=== PATIENT | male | born 1970 | race Caucasian/White ===

== ENCOUNTER 2016-10-04 19:30 | Emergency (ER) | payer OTHER ==
--- NOTE | 2016-10-04 21:29 | ED CLINICAL REPORT ---
Clinical Report - Physicians/Mid Levels [facility] [address] [place] [address] 10/04/2016 19:32 Patient: GEORGIA LACY Arrived- By private vehicle. Historian- patient. HISTORY OF PRESENT ILLNESS Chief Complaint: CHEST PAIN. It is described as sharp and it is described as located in the left chest area. No radiation. At its maximum, severity described as moderate. When seen in the E.D., severity described as moderate. Modifying factors. Not worsened by anything. Not relieved by anything. This started past few weeks and is still present (staying the same). It was abrupt in onset and has been constant but is not gone now. No nausea, vomiting, difficulty breathing or diaphoresis. No additional chest pain. Similar symptoms previously: None. Recent medical care: Not recently seen/assessed. REVIEW OF SYSTEMS All systems otherwise negative, except as recorded above. PAST HISTORY See nurses notes. Additional Surgeries: no known surgeries. Medications: Anxiety medication. Ibuprofen Oral, as needed. Allergies: NKA. SOCIAL HISTORY Smoker- current status unknown. Alcohol use. No drug use. No recent travel. Is a local resident. FAMILY HISTORY No history of heart disease. ADDITIONAL NOTES The nursing notes have been reviewed. PHYSICAL EXAM Vital Signs: 10/04/2016 19:41 BP: 113/92. HR: 88. RR: 16. O2 saturation: 94%. Temp: 98.5 F. Pain level now: 4/10. Hypertensive. Oxygen saturation normal. Appearance: Alert. Oriented X3. No acute distress. Eyes: Pupils equal, round and reactive to light. Eyes normal inspection. ENT: Ears normal. Nose normal. Pharynx normal. Neck: Normal inspection. Neck supple. CVS: Heart rate / rhythm abnormal. Heart sounds abnormal. Pulses abnormal. Respiratory: No respiratory distress. Breath sounds normal. Chest nontender. No rales, rhonchi or wheezes. Abdomen: Abnormal bowel sounds. Not soft. Tenderness present. Back: Abnormal external inspection. Skin: Skin cool and moist. Abnormal skin color. Rash present. Abnormal skin turgor. Extremities: Lower extremity edema present. Extremities do not exhibit normal ROM. LABS, X-RAYS, AND EKG EKG: No acute ischemia. Normal sinus rhythm. Rate: 87. Normal P waves. Normal OMA. Normal QRS complex. LVH. (borderline). Normal axis. Normal ST and T waves, QT and QTc. The study has been interpreted contemporaneously. The study has been independently viewed by me. The EKG appears to be a good tracing. Chest X-ray: No acute disease. Normal lung markings present. Normal heart size. No infiltrate. Views: PA and lateral. The X-rays were independently viewed by me and interpreted contemporaneously by me. A comparison with prior films reveals that the findings are unchanged. Laboratory Tests: UA-Culture if indicated: (NANDO: 10/04/2016 19:58) ( MsgRcvd 10/04/2016 21:06) Final results Test Result Flag Units (Reference) URINE COLOR YELLOW URINE APPEARANCE CLEAR URINE GLUCOSE NEGATIVE (NEGATIVE) URINE BILIRUBIN NEGATIVE (NEGATIVE) URINE KETONE NEGATIVE (NEGATIVE) URINE SPECIFIC GRAVITY 1.020 (1.010-1.030) URINE PH 7.0 (5.0-8.0) URINE PROTEIN NEGATIVE (NEGATIVE) URINE UROBILINOGEN 0.2 EU/dL (0.2-1.0) URINE NITRITE NEGATIVE (NEGATIVE) URINE BLOOD NEGATIVE (NEGATIVE) URINE LEUK ESTERASE NEGATIVE (NEGATIVE) URINE RBC NONE SEEN rbc/hpf (0-1) URINE WBC 0-1 wbc/hpf (0-1) URINE EPITHELIAL CELLS RARE EPI/hpf (0-5) URINE BACTERIA NONE SEEN (NONE SEEN) URINE COMMENT CULT NOT INDICATED 1+ AMORPHOUSURINE CULTURES ARE SET-UP BASED ON THE FOLLOWING CRITERIA:POSITIVE NITRITEPOSITIVE LEUKOCYTE ESTERASEGREATER THAN 10 WHITE BLOOD CELLSMODERATE (2+) OR GREATER BACTERIA UA-Culture if indicated: (NANDO: 10/04/2016 20:16) ( MsgRcvd 10/04/2016 20:30) Final results Test Result Flag Units (Reference) URINE COLOR YELLOW URINE APPEARANCE CLEAR URINE GLUCOSE NEGATIVE (NEGATIVE) URINE BILIRUBIN NEGATIVE (NEGATIVE) URINE KETONE NEGATIVE (NEGATIVE) URINE SPECIFIC GRAVITY 1.020 (1.010-1.030) URINE PH 7.0 (5.0-8.0) URINE PROTEIN NEGATIVE (NEGATIVE) URINE UROBILINOGEN 0.2 EU/dL (0.2-1.0) URINE NITRITE NEGATIVE (NEGATIVE) URINE BLOOD NEGATIVE (NEGATIVE) URINE LEUK ESTERASE NEGATIVE (NEGATIVE) URINE RBC NONE SEEN rbc/hpf (0-1) URINE WBC 0-1 wbc/hpf (0-1) URINE EPITHELIAL CELLS RARE EPI/hpf (0-5) URINE BACTERIA NONE SEEN (NONE SEEN) URINE COMMENT CULT NOT INDICATED 1+ AMORPHOUSURINE CULTURES ARE SET-UP BASED ON THE FOLLOWING CRITERIA:POSITIVE NITRITEPOSITIVE LEUKOCYTE ESTERASEGREATER THAN 10 WHITE BLOOD CELLSMODERATE (2+) OR GREATER BACTERIA CBC w Diff: (NANDO: 10/04/2016 20:09) ( MsgRcvd 10/04/2016 20:22) Final results Test Result Flag Units (Reference) WHITE BLOOD COUNT 9.6 K/uL (4.5-11.5) RED BLOOD COUNT 5.01 M/uL (4.50-5.90) HEMOGLOBIN 15.8 gm/dL (13.5-17.5) HEMATOCRIT 47.0 % (41.0-53.0) MEAN CELL VOLUME 94 fL (80-100) MEAN CORPUSCULAR HGB 32 pg (26-34) MEAN CORPUSCULAR HGB CONC 34 g/dL (31-37) RED CELL DISTRIBUTION WIDTH 13.0 % (11.6-14.8) PLATELET COUNT 229 K/uL (150-400) NEUTROPHIL % 64.8 % (50-75) LYMPH % 25.4 % (25-40) MONO % 6.3 % (3-14) EOSINOPHIL % 3.0 % (0-4) BASOPHIL % 0.5 % (0-2) PT with INR: (NANDO: 10/04/2016 20:09) ( MsgRcvd 10/04/2016 20:49) Final results Test Result Flag Units (Reference) INR 1.0 (0.8-1.2) Low Intensity Therapy: INR 1.5-2.0 PT range 18.5-23.1Mod.Intensity Therapy: INR 2.0-3.0 PT range 23.1-31.5High Intensity Therapy: INR 2.5-3.5 PT range 27.4-35.5High Intensity Therapy 2: INR 3.0-4.0 PT range 31.5-39.3 Urine Drug Screen: (NANDO: 10/04/2016 20:09) ( MsgRcvd 10/04/2016 21:02) Final results Test Result Flag Units (Reference) AMPHETAMINE/METHAMPHETAMINE NEGATIVE (NEGATIVE) BARBITURATE NEGATIVE (NEGATIVE) BENZODIAZEPINE NEGATIVE (NEGATIVE) CANNABINOID NEGATIVE (NEGATIVE) COCAINE NEGATIVE (NEGATIVE) ECSTASY NEGATIVE (NEGATIVE) METHADONE NEGATIVE (NEGATIVE) OPIATE NEGATIVE (NEGATIVE) The urine drug screen is a qualitative screening test fordrug overdose and abuse. All screen results should beconsidered as presumptive.Drugs screened for are as follows:BenzodiazepinesCocaineAmphetamines/MetamphetaminesTHC (Tetrahydrocannabinol)OpiatesBarbituratesEcstasyMethadonePositive results are unconfirmed. For confirmation, notifythe lab for the specimen to be sent to the reference lab.All confirmations must be performed by a differentmethodology.The ingestion of natural herbal and plant productscontaining Ephedra/Ephedra metabolites can produce in urineone or more substances capable of cross reacting withamphetamine/methamphetamine immunoassays. These testsprovide a preliminary result only. A more specificalternative chemical method must be used to obtain aconfirmed analytical result. Urine Drug Screen: (NANDO: 10/04/2016 20:16) ( MsgRcvd 10/04/2016 20:41) Final results Test Result Flag Units (Reference) AMPHETAMINE/METHAMPHETAMINE NEGATIVE (NEGATIVE) BARBITURATE NEGATIVE (NEGATIVE) BENZODIAZEPINE NEGATIVE (NEGATIVE) CANNABINOID NEGATIVE (NEGATIVE) COCAINE NEGATIVE (NEGATIVE) ECSTASY NEGATIVE (NEGATIVE) METHADONE NEGATIVE (NEGATIVE) OPIATE POSITIVE H (NEGATIVE) The urine drug screen is a qualitative screening test fordrug overdose and abuse. All screen results should beconsidered as presumptive.Drugs screened for are as follows:BenzodiazepinesCocaineAmphetamines/MetamphetaminesTHC (Tetrahydrocannabinol)OpiatesBarbituratesEcstasyMethadonePositive results are unconfirmed. For confirmation, notifythe lab for the specimen to be sent to the reference lab.All confirmations must be performed by a differentmethodology.The ingestion of natural herbal and plant productscontaining Ephedra/Ephedra metabolites can produce in urineone or more substances capable of cross reacting withamphetamine/methamphetamine immunoassays. These testsprovide a preliminary result only. A more specificalternative chemical method must be used to obtain aconfirmed analytical result. CMP: (NANDO: 10/04/2016 20:09) ( MsgRcvd 10/04/2016 20:41) Final results Test Result Flag Units (Reference) GLUCOSE 87 mg/dL (70-110) BUN 20 H mg/dL (7-18) CREATININE 0.9 mg/dL (0.6-1.3) Estimated GFR >60 mL/min Estimated GFR- >60 mL/min Note: Persistent reduction over 3 months in eGFR<60 mL/min/1.73 m2 defines CKD. Patients with eGFR values>=60 mL/min/1.73 m2 may also have CKD if evidence ofpersistent proteinuria. Additional information may be foundat www.[email or web address].org. SODIUM 143 mmol/L (136-145) POTASSIUM 4.6 mmol/L (3.5-5.1) CHLORIDE 106 mmol/L (98-107) CARBON DIOXIDE 29 mmol/L (21-32) CALCIUM 8.6 mg/dL (8.5-10.1) TOTAL PROTEIN 7.3 g/dL (6.4-8.2) ALBUMIN 3.8 g/dL (3.3-5.0) BILIRUBIN, TOTAL 0.3 mg/dL (0.0-1.0) ALKALINE PHOSPHATASE 60 U/L (46-116) AST (SGOT) 17 U/L (15-37) ALT (SGPT) 21 U/L (12-78) TROPONIN I <0.05 L ng/mL (0.00-1.5) TROPONIN REFERENCE RANGE:<0.1 NEGATIVE0.1-1.5 INDETERMINANT>1.5 POSITIVE . PROGRESS AND PROCEDURES Course of Care: the patient is a pleasant 46-year-old male with no pertinent past medical history presenting for evaluation of chest pain. Patient reports with past to 3 weeks he's been having increasing stress and pain to the left side of his chest . Appears to be nonexertional. Patient has a risk factor for coronary artery disease with smoking. No other known abnormalities. EKG does not show any acute abnormalities. Possible left ventricular hypertrophy. Patient seems to befocused on the amount of stress she has been having with working 2 jobs, being a single dad of 3 children, and supporting his living situation and the children. Patient presented is been prescribed a anxiety medication however does not feel that this is working. Patient reported that he had to take off from work today in order to be evaluated. Patient is currently PE RC negative. Patient has no other risk factors for pulmonary embolism. Do not feel further workup is needed for acute pulmonary embolism. Patient has been having pain for the past 2 or 3 weeks. His been constant. Troponin 1 has been ordered. Do not feel patient is delta troponin given the time course of his illness. Workup does not show acute abnormalities. Troponin is negative. d-dimer is normal making pulmonary embolism and thoracic aortic dissection extremely unlikely. Do not the patient is admitted to the hospital require further emergency department workup. Patient is a stable outpatient candidate. I discussed the patient workup, diagnosis, home care, follow-up, and return precautions. All questions answered. The patient expressed understanding of these instructions and was agreeable to them. Disposition: Discharged. Condition: good. CLINICAL IMPRESSION Chest pain characterized as "discomfort" .12 lead EKG performed. 10/04/2016 19:41 BP: 113/92. HR: 88. RR: 16. O2 saturation: 94%. Temp: 98.5 F. Pain level now: 11/22. Adjustment disorder with anxiety (acute). Blood pressure normal. Oxygen saturation normal. INSTRUCTIONS Warnings: GENERAL WARNINGS: Return or contact your physician immediately if your condition worsens or changes unexpectedly, if not improving as expected, or if other problems arise. SPECIFICALLY, return if you develop chest, neck, jaw, shoulder, arm, or back pain, difficulty breathing, a fluttering sensation in your chest, lightheadedness, fainting, excessive fatigue, or sudden sweating. Your Current Medications: CONTINUE TAKING THE FOLLOWING MEDICATIONS: Anxiety medication*. Ibuprofen Oral : prn. Follow-up: Return to the emergency department as needed. Follow up with your doctor. Reason for referral: recheck today's concerns. Summary of care provided to patient via paper. Screening today revealed the patient's blood pressure to be in the normal range. The patient should follow up with a primary care provider for blood pressure management. Understanding of the discharge instructions verbalized by patient. Follow-up with: Aaliyah Calhoun MD, Cardiology, , [facility], [address] [place] [address], [facility], [id number] Follow up in three days. Reason for referral: recheck today's concerns. Summary of care provided to patient via paper. (Electronically signed by Vaughn Clemente Dr. 10/12/2016 8:04)
--- NOTE | 2016-10-04 21:29 | ED NURSING NOTES ---
Clinical Report - Nurses [facility] [address] [place] [address] 10/04/2016 19:32 Patient: GEORGIA LACY TRIAGE Triage time 1941 PM. Acuity: LEVEL 3. Chief Complaint: CHEST PAIN and (anxiety). Alert. No acute distress. --19:46 Mark Arana R.N. 19:41 10/04/16. BP: 113/92 taken on the left arm, via an automated monitor, while lying. HR: 88. RR: 16. O2 saturation: 94%. Temp: 98.5 F (oral). Pain level now: 11/22. --19:46 Mark Arana R.N. Weight: 56.6 kg stated. Height/Length: 65 inches. BMI: 20.8. --19:41 Mark Arana R.N. Medications Ibuprofen Oral, as needed. --19:45 Mark Arana R.N. Anxiety medication. --19:45 Mark Arana R.N. Allergies NKA. --19:45 Mark Arana R.N. History Arrived by private vehicle. Historian: patient. Accompanied by family. This started today. ( Patient presents to the ED with symptoms of intermittent CP and anxiety that began while he was at work. 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 Patient states that he is a single father with 3 children and one with cerebral palsy. Patient states that he is struggling to find a place to live. Patient states that he is feeling extremely stressed. Patient states that his only coping mechanism is smoking cigarettes.). He has had difficulty breathing. 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 PAST MEDICAL HX: Immunizations: up-to-date. SOCIAL HX: Heavy tobacco smoker- more than 2 packs per day. Alcohol use. Last drink was 4 weeks ago. Patient is a recovering alcoholic. History of drug use. (no). FALL RISK ASSESSMENT: Fall risk assessment completed. No fall risk identified. NUTRITIONAL RISK ASSESSMENT: The nutritional risk assessment revealed no deficiencies. FUNCTIONAL ASSESSMENT: Functional assessment: no impairments noted. LEARNING NEEDS ASSESSMENT: The learning needs assessment revealed no barriers. SKIN INTEGRITY ASSESSMENT: Skin integrity risk assessment completed. No skin integrity risk identified. --19:46 Mark Arana R.N. PROBLEMS: Anxiety Reaction. Gastritis. Back Pain. Urinary Calculi. --19:45 Mark Arana R.N. ADDITIONAL SURGERIES: no known surgeries. Interventions ID band on patient. To treatment room. --19:46 Mark Arana R.N. PHYSICAL ASSESSMENT Ambulatory to room. GENERAL / NEURO / PSYCH: Alert. Oriented X 4. Appears in no acute distress. Appears anxious. HEENT: Mucous membranes are pink. RESPIRATORY: Respirations not labored. Chest nontender. CVS: Normal sinus rhythm noted. Heart sounds within normal limits. Pulses within normal limits. Capillary refill less than 2 seconds. GI / : Abdomen soft and nontender. EXTREMITIES: No lower extremity edema. SKIN: Skin is warm and dry. Normal skin turgor. Skin is non-tender. --19:46 Mark Arana R.N. NURSING PROGRESS NOTES Reassurance given. Call light placed in reach. Side rails up x 2. Bed placed in lowest position. Brakes of bed on. --19:47 Mark Arana R.N. EKG time: (1944 PM). EKG was ordered, performed by a tech and shown to the ED physician. --19:47 Mark Arana R.N. 20:10 10/04/2016 Aspirin PO Tablets 324 mg given. Allergies verified and confirmed 5 rights. --20:10 Mark Arana R.N. EKG time: (1944). EKG was performed by a tech and shown to the ED physician. --20:16 Elizabeth Titus ER Tech1 20:22 10/04/2016 Site #1 started prior to arrival by EMS via IV in the right antecubital space with an 18g angiocath; one attempt. Blood drawn: rainbow set. Labeled in the presence of the patient and sent to the lab. Saline lock flushed with 10 mL saline. --20:22 Mark Arana R.N. Call light placed in reach. Side rails up x 2. Bed placed in lowest position. Brakes of bed on. --21:33 Mark Arana R.N. 21:32 10/04/16. BP: 140/92. HR: 90. RR: 16. O2 saturation: 100%. --21:33 Mark Arana R.N. The patient is calm and resting quietly. Overall patient status is improved- he states feels better. RESPIRATORY: No respiratory distress. Breath sounds normal. CVS: Normal sinus rhythm noted. SKIN: Skin is warm and dry. Skin color within normal limits. --21:33 Mark Arana R.N. DISPOSITION / DISCHARGE 22:04 10/04/2016 Site #1 removed upon discharge. Catheter intact. Bandaid applied. --22: Mark Arana R.N. Condition at departure: improved. The goals identified in the patient's plan of care were met. No learning barriers present. Reviewed medication(s) side effects, precautions, dosing and course information. Prescription(s) given to the patient. Patient verbalized understanding. Written instructions provided in Tajik. The patient was discharged home and unaccompanied at time of discharge. He left the Emergency Department ambulatory and via private vehicle. Patient driving. FALL RISK ASSESSMENT: Fall risk assessment completed. No fall risk identified. --22:04 Mark Arana R.N. 22:03 10/04/16. BP: 133/88 taken on the right arm, via an automated monitor, while lying. HR: 88. RR: 16. O2 saturation: 99%. Temp: 98.2 F (oral). Pain level now: 0/10. --22:04 Mark Arana R.N. Departure time: 2204 PM. --22:04 Mark Arana R.N. Locked/Released at 10/04/2016 22:05 by Mark Arana R.N.
--- NOTE | 2016-10-04 21:29 | ED ORDER SUMMARY ---
..... Patient: GEORGIA LACY OrderSheet [facility] VisitID: [id number] [address] [place] [address] 46y, M Registration Date/Time: 10/04/2016 ORDER SHEET Weight: 56.6 kg (stated) Allergies: NKA GENERAL ORDERS: Chest 2V Urgent (19:58 10/04/2016 Ayan Sherwood) (Ack 20:00 LMuller) (20:11 MCampbell) Scale Technician (Continuous) (CP) (19:58 10/04/2016 Ayan Sherwood) (Ack 20:00 LMuller) (20:21 HOShaughnessy R.N.) CBC w Diff Urgent (19:58 10/04/2016 Ayan Sherwood) (Ack 20:00 LMuller) (20:21 HOShaughnessy R.N.) CMP Urgent (19:58 10/04/2016 Ayan Sherwood) (Ack 20:00 LMuller) (20:21 HOShaughnessy R.N.) PT with INR Urgent (19:58 10/04/2016 Ayan Sherwood) (Ack 20:00 LMuller) (20:21 HOShaughnessy R.N.) UA-Culture if indicated Urgent (19:58 10/04/2016 Ayan Sherwood) (Ack 20:00 LMuller) (20:21 HOShaughnessy R.N.) Troponin-I Urgent (19:58 10/04/2016 Ayan Sherwood) (Ack 20:00 LMuller) (20:21 HOShaughnessy R.N.) Urine Drug Screen Urgent (19:58 10/04/2016 Ayan Sherwood) (Ack 20:00 LMuller) (20:21 HOShaughnessy R.N.) Pulse oximeter (19:58 10/04/2016 Ayan Sherwood) (Ack 20:00 LMuller) (20:21 HOShaughnessy R.N.) EKG - ER Stat (20:06 10/04/2016 HOShaughnessy R.N. per protocol) (20:06 HOShaughnessy R.N.) US Abdomen Limited (No) Urgent (21:03 10/04/2016 Ayan Sherwood) (21:05 Ayan Sherwood) (Cancelled: error21:05 Ayan Sherwood) Lipase Urgent (21:03 10/04/2016 Ayan Sherwood) (Cancelled: error21:05 Ayan Sherwood) D-Dimer Urgent (21:30 10/04/2016 Ayan Sherwood) (Ack 21:34 LMuller) (21:41 LMuller) MEDICATION ORDERS: Aspirin PO 325 mg (Do not crush or chew, NOW) (19:58 10/04/2016 Ayan Sherwood) (20:10 Zeke Mota) IV FLUIDS: IV Saline Lock (19:58 10/04/2016 Ayan Sherwood) (20:22 Zeke Mota) ORDER SHEET NOTES: [Electronically signed by Mark Arana R.N. (22:05 10/04/2016)] [Electronically signed by Vaughn Clemente Dr. (08:04 10/12/2016)] [Electronically locked/signed by Mark Arana R.N. (22:05 10/04/2016)]
--- NOTE | 2016-10-04 21:29 | ED NURSING NOTES ---
Clinical Report - Nurses [facility] [address] [place] [address] 10/04/2016 19:32 Patient: GEORGIA LACY TRIAGE Triage time 1941 PM. Acuity: LEVEL 3. Chief Complaint: CHEST PAIN and (anxiety). Alert. No acute distress. --19:46 Mark Arana R.N. 19:41 10/04/16. BP: 113/92 taken on the left arm, via an automated monitor, while lying. HR: 88. RR: 16. O2 saturation: 94%. Temp: 98.5 F (oral). Pain level now: 11/22. --19:46 Mark Arana R.N. Weight: 56.6 kg stated. Height/Length: 65 inches. BMI: 20.8. --19:41 Mark Arana R.N. Medications Ibuprofen Oral, as needed. --19:45 Mark Arana R.N. Anxiety medication. --19:45 Mark Arana R.N. Allergies NKA. --19:45 Mark Arana R.N. History Arrived by private vehicle. Historian: patient. Accompanied by family. This started today. ( Patient presents to the ED with symptoms of intermittent CP and anxiety that began while he was at work. 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 Patient states that he is struggling to find a place to live. Patient states that he is feeling extremely stressed. Patient states that his only coping mechanism is smoking cigarettes.). He has had difficulty breathing. 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 PAST MEDICAL HX: Immunizations: up-to-date. SOCIAL HX: Heavy tobacco smoker- more than 2 packs per day. Alcohol use. Last drink was 4 weeks ago. Patient is a recovering alcoholic. History of drug use. (no). FALL RISK ASSESSMENT: Fall risk assessment completed. No fall risk identified. NUTRITIONAL RISK ASSESSMENT: The nutritional risk assessment revealed no deficiencies. FUNCTIONAL ASSESSMENT: Functional assessment: no impairments noted. LEARNING NEEDS ASSESSMENT: The learning needs assessment revealed no barriers. SKIN INTEGRITY ASSESSMENT: Skin integrity risk assessment completed. No skin integrity risk identified. --19:46 Mark Arana R.N. PROBLEMS: Anxiety Reaction. Gastritis. Back Pain. Urinary Calculi. --19:45 Mark Arana R.N. ADDITIONAL SURGERIES: no known surgeries. Interventions ID band on patient. To treatment room. --19:46 Mark Arana R.N. PHYSICAL ASSESSMENT Ambulatory to room. GENERAL / NEURO / PSYCH: Alert. Oriented X 4. Appears in no acute distress. Appears anxious. HEENT: Mucous membranes are pink. RESPIRATORY: Respirations not labored. Chest nontender. CVS: Normal sinus rhythm noted. Heart sounds within normal limits. Pulses within normal limits. Capillary refill less than 2 seconds. GI / : Abdomen soft and nontender. EXTREMITIES: No lower extremity edema. SKIN: Skin is warm and dry. Normal skin turgor. Skin is non-tender. --19:46 Mark Arana R.N. NURSING PROGRESS NOTES Reassurance given. Call light placed in reach. Side rails up x 2. Bed placed in lowest position. Brakes of bed on. --19:47 Mark Arana R.N. EKG time: (1944 PM). EKG was ordered, performed by a tech and shown to the ED physician. --19:47 Mark Arana R.N. 20:10 10/04/2016 Aspirin PO Tablets 324 mg given. Allergies verified and confirmed 5 rights. --20:10 Mark Arana R.N. EKG time: (1944). EKG was performed by a tech and shown to the ED physician. --20:16 Elizabeth Titus ER Tech1 20:22 10/04/2016 Site #1 started prior to arrival by EMS via IV in the right antecubital space with an 18g angiocath; one attempt. Blood drawn: rainbow set. Labeled in the presence of the patient and sent to the lab. Saline lock flushed with 10 mL saline. --20:22 Mark Arana R.N. Call light placed in reach. Side rails up x 2. Bed placed in lowest position. Brakes of bed on. --21:33 Mark Arana R.N. 21:32 10/04/16. BP: 140/92. HR: 90. RR: 16. O2 saturation: 100%. --21:33 Mark Arana R.N. The patient is calm and resting quietly. Overall patient status is improved- he states feels better. RESPIRATORY: No respiratory distress. Breath sounds normal. CVS: Normal sinus rhythm noted. SKIN: Skin is warm and dry. Skin color within normal limits. --21:33 Mark Arana R.N. DISPOSITION / DISCHARGE 22:04 10/04/2016 Site #1 removed upon discharge. Catheter intact. Bandaid applied. --22: Mark Arana R.N. Condition at departure: improved. The goals identified in the patient's plan of care were met. No learning barriers present. Reviewed medication(s) side effects, precautions, dosing and course information. Prescription(s) given to the patient. Patient verbalized understanding. Written instructions provided in Luxembourgish. The patient was discharged home and unaccompanied at time of discharge. He left the Emergency Department ambulatory and via private vehicle. Patient driving. FALL RISK ASSESSMENT: Fall risk assessment completed. No fall risk identified. --22:04 Mark Arana R.N. 22:03 10/04/16. BP: 133/88 taken on the right arm, via an automated monitor, while lying. HR: 88. RR: 16. O2 saturation: 99%. Temp: 98.2 F (oral). Pain level now: 0/10. --22:04 Mark Arana R.N. Departure time: 2204 PM. --22:04 Mark Arana R.N. Locked/Released at 10/04/2016 22:05 by Mark Arana R.N.
--- NOTE | 2016-10-04 21:29 | ED ORDER SUMMARY ---
..... Patient: GEORGIA LACY OrderSheet [facility] VisitID: [id number] [address] [place] [address] 46y, M Registration Date/Time: 10/04/2016 ORDER SHEET Weight: 56.6 kg (stated) Allergies: NKA GENERAL ORDERS: Chest 2V Urgent (19:58 10/04/2016 Ayan Sherwood) (Ack 20:00 LMuller) (20:11 MCampbell) Fuel Distribution System Operator (Continuous) (CP) (19:58 10/04/2016 Ayan Sherwood) (Ack 20:00 LMuller) (20:21 HOShaughnessy R.N.) CBC w Diff Urgent (19:58 10/04/2016 Ayan Sherwood) (Ack 20:00 LMuller) (20:21 HOShaughnessy R.N.) CMP Urgent (19:58 10/04/2016 Ayan Sherwood) (Ack 20:00 LMuller) (20:21 HOShaughnessy R.N.) PT with INR Urgent (19:58 10/04/2016 Ayan Sherwood) (Ack 20:00 LMuller) (20:21 HOShaughnessy R.N.) UA-Culture if indicated Urgent (19:58 10/04/2016 Ayan Sherwood) (Ack 20:00 LMuller) (20:21 HOShaughnessy R.N.) Troponin-I Urgent (19:58 10/04/2016 Ayan Sherwood) (Ack 20:00 LMuller) (20:21 HOShaughnessy R.N.) Urine Drug Screen Urgent (19:58 10/04/2016 Ayan Sherwood) (Ack 20:00 LMuller) (20:21 HOShaughnessy R.N.) Pulse oximeter (19:58 10/04/2016 Ayan Sherwood) (Ack 20:00 LMuller) (20:21 HOShaughnessy R.N.) EKG - ER Stat (20:06 10/04/2016 HOShaughnessy R.N. per protocol) (20:06 HOShaughnessy R.N.) US Abdomen Limited (No) Urgent (21:03 10/04/2016 Ayan Sherwood) (21:05 Ayan Sherwood) (Cancelled: error21:05 Ayan Sherwood) Lipase Urgent (21:03 10/04/2016 Ayan Sherwood) (Cancelled: error21:05 Ayan Sherwood) D-Dimer Urgent (21:30 10/04/2016 Ayan Sherwood) (Ack 21:34 LMuller) (21:41 LMuller) MEDICATION ORDERS: Aspirin PO 325 mg (Do not crush or chew, NOW) (19:58 10/04/2016 Ayan Sherwood) (20:10 Zeke Mota) IV FLUIDS: IV Saline Lock (19:58 10/04/2016 Ayan Sherwood) (20:22 Zeke Mota) ORDER SHEET NOTES: [Electronically signed by Mark Arana R.N. (22:05 10/04/2016)] [Electronically signed by Vaughn Clemente Dr. (08:04 10/12/2016)] [Electronically locked/signed by Mark Arana R.N. (22:05 10/04/2016)]
--- NOTE | 2016-10-04 22:38 | DIAGNOSTIC IMAGING REPORT ---
PROCEDURE: XR CHEST 2 VIEW INDICATION: CHEST PAIN TECHNIQUE: Two views. COMPARISON: Acute abdomen series 07/11/2014 FINDINGS: The cardiomediastinal contour and central vasculature are within normal limits. The lungs are clear without focal consolidation, pleural effusion, or pneumothorax. No acute fractures. Incidental note made of chronic minor compression fracture of L1. IMPRESSION: 1. Stable chest, no acute process.
--- NOTE | 2016-10-12 08:05 | ED MAR SUMMARY ---
..... Medication Administration Record [facility] [address] [place] [address] Patient: GEORGIA LACY Visit ID: [id number] 46y, M Weight: 56.6 kg Height/Length: 65 in BMI: 20.8 ALLERGIES: NKA Given 20:10 10/04/2016 Mark Arana R.N. Medication Administered: ASPIRIN [PO], Dose: 324 mg Tablets PO. Medication Ordered: Aspirin PO 325 mg (Do not crush or chew, NOW).
--- NOTE | 2016-10-12 08:05 | ED DISCHARGE INSTRUCTIONS ---
Patient: GEORGIA LACY General Instructions [facility] VisitID: [id number] [address] [place] [address] 46y, M Registration Date/Time: 10/04/2016 Chest pain characterized as "discomfort" .12 lead EKG performed. 10/04/2016 19:41 BP: 113/92. HR: 88. RR: 16. O2 saturation: 94%. Temp: 98.5 F. Pain level now: 11/22. Adjustment disorder with anxiety (acute). Blood pressure normal. Oxygen saturation normal. INSTRUCTIONS Warnings: GENERAL WARNINGS: Return or contact your physician immediately if your condition worsens or changes unexpectedly, if not improving as expected, or if other problems arise. SPECIFICALLY, return if you develop chest, neck, jaw, shoulder, arm, or back pain, difficulty breathing, a fluttering sensation in your chest, lightheadedness, fainting, excessive fatigue, or sudden sweating. Your Current Medications: CONTINUE TAKING THE FOLLOWING MEDICATIONS: Anxiety medication*. Ibuprofen Oral : prn. Follow-up: Return to the emergency department as needed. Follow up with your doctor. Reason for referral: recheck today's concerns. Summary of care provided to patient via paper. Screening today revealed the patient's blood pressure to be in the normal range. The patient should follow up with a primary care provider for blood pressure management. Understanding of the discharge instructions verbalized by patient. Follow-up with: Aaliyah Calhoun MD, Cardiology, , [facility] - [place] [address], [facility], [id number] Follow up in three days. Reason for referral: recheck today's concerns. Summary of care provided to patient via paper. ADDITIONAL INFORMATION Chest Pain, Uncertain Cause Chest pain can happen for a number of reasons. Sometimes the cause can not be determined. If yourcondition does not seem serious, and your pain does not appear to be coming from your heart, your doctor may recommend watching it closely. Sometimes the signs of a serious problem take more time to appear. Therefore, watch for the warning signs listed below. Home care After your visit, follow these recommendations: Rest today and avoid strenuous activity. Take any prescribed medicine as directed. Follow-up care Follow up with your doctor or this facility as instructed or if you do not start to feel better within 24 hours. Call 911 Get immediate medical attention if any of the following occur: A change in the type of pain: if it feels different, becomes more severe, lasts longer, or begins to spread into your shoulder, arm, neck, jaw or back Shortness of breath or increased pain with breathing Weakness, dizziness, or fainting Rapid heart beat Get prompt medical attention Call your doctor right away if any of the following occur: Cough with dark colored sputum (phlegm) or blood Fever of 100.4F(38C) or higher, or as directed by your health care provider Swelling, pain or redness in one leg Adjustment Disorder An adjustment disorder is a condition that results from having a hard time coping with the normal stresses of life. You may feel you have too much to do and cant get it all done. These feelings may be triggered by divorce, job loss, someone you know dying, or by a positive event like getting a new job or getting . These feelings may interfere with your relationships at home and at work. With this condition, it is common to feel sad, guilty, hopeless and restless. These feelings may continue for weeks or months. It can be helpful to identify what is causing the additional stress and takes steps to get extra support. If new stressful events do not occur, it is likely that you will start feeling better within six months. Home Care: If you have been given a prescription for medicine, take it as directed. It helps to talk about your feelings and thoughts with family or friends that understand and support you. Follow Up with your doctor or therapist as advised by our staff. Let them know if this condition lasts more than six months without sign of improvement. For more information, contact the National [place] on Mental Illness at 082-988-3252 or visit www.osvaldo.org. Get Prompt Medical Attention if any of the following occur: Worsening depression or anxiety Feeling out of control Thoughts of harming yourself or another Being unable to care for yourself You have been given the following additional information: Chest Pain, Uncertain Cause Adjustment Disorder (Electronically signed by Vaughn Clemente Dr. 10/12/2016 8:04)
--- NOTE | 2016-10-12 08:05 | ED MAR SUMMARY ---
..... Medication Administration Record [facility] [address] [place] [address] Patient: GEORGIA LACY Visit ID: [id number] 46y, M Weight: 56.6 kg Height/Length: 65 in BMI: 20.8 ALLERGIES: NKA Given 20:10 10/04/2016 Mark Arana R.N. Medication Administered: ASPIRIN [PO], Dose: 324 mg Tablets PO. Medication Ordered: Aspirin PO 325 mg (Do not crush or chew, NOW).
--- NOTE | 2016-10-12 08:05 | ED DISCHARGE INSTRUCTIONS ---
Patient: GEORGIA LACY General Instructions [facility] VisitID: [id number] [address] [place] [address] 46y, M Registration Date/Time: 10/04/2016 Chest pain characterized as "discomfort" .12 lead EKG performed. 10/04/2016 19:41 BP: 113/92. HR: 88. RR: 16. O2 saturation: 94%. Temp: 98.5 F. Pain level now: 11/22. Adjustment disorder with anxiety (acute). Blood pressure normal. Oxygen saturation normal. INSTRUCTIONS Warnings: GENERAL WARNINGS: Return or contact your physician immediately if your condition worsens or changes unexpectedly, if not improving as expected, or if other problems arise. SPECIFICALLY, return if you develop chest, neck, jaw, shoulder, arm, or back pain, difficulty breathing, a fluttering sensation in your chest, lightheadedness, fainting, excessive fatigue, or sudden sweating. Your Current Medications: CONTINUE TAKING THE FOLLOWING MEDICATIONS: Anxiety medication*. Ibuprofen Oral : prn. Follow-up: Return to the emergency department as needed. Follow up with your doctor. Reason for referral: recheck today's concerns. Summary of care provided to patient via paper. Screening today revealed the patient's blood pressure to be in the normal range. The patient should follow up with a primary care provider for blood pressure management. Understanding of the discharge instructions verbalized by patient. Follow-up with: Aaliyah Calhoun MD, Cardiology, , [facility] - [place] [address], [facility], [id number] Follow up in three days. Reason for referral: recheck today's concerns. Summary of care provided to patient via paper. ADDITIONAL INFORMATION Chest Pain, Uncertain Cause Chest pain can happen for a number of reasons. Sometimes the cause can not be determined. If yourcondition does not seem serious, and your pain does not appear to be coming from your heart, your doctor may recommend watching it closely. Sometimes the signs of a serious problem take more time to appear. Therefore, watch for the warning signs listed below. Home care After your visit, follow these recommendations: Rest today and avoid strenuous activity. Take any prescribed medicine as directed. Follow-up care Follow up with your doctor or this facility as instructed or if you do not start to feel better within 24 hours. Call 911 Get immediate medical attention if any of the following occur: A change in the type of pain: if it feels different, becomes more severe, lasts longer, or begins to spread into your shoulder, arm, neck, jaw or back Shortness of breath or increased pain with breathing Weakness, dizziness, or fainting Rapid heart beat Get prompt medical attention Call your doctor right away if any of the following occur: Cough with dark colored sputum (phlegm) or blood Fever of 100.4F(38C) or higher, or as directed by your health care provider Swelling, pain or redness in one leg Adjustment Disorder An adjustment disorder is a condition that results from having a hard time coping with the normal stresses of life. You may feel you have too much to do and cant get it all done. These feelings may be triggered by divorce, job loss, someone you know dying, or by a positive event like getting a new job or getting . These feelings may interfere with your relationships at home and at work. With this condition, it is common to feel sad, guilty, hopeless and restless. These feelings may continue for weeks or months. It can be helpful to identify what is causing the additional stress and takes steps to get extra support. If new stressful events do not occur, it is likely that you will start feeling better within six months. Home Care: If you have been given a prescription for medicine, take it as directed. It helps to talk about your feelings and thoughts with family or friends that understand and support you. Follow Up with your doctor or therapist as advised by our staff. Let them know if this condition lasts more than six months without sign of improvement. For more information, contact the National [place] on Mental Illness at 192-484-6896 or visit www.osvaldo.org. Get Prompt Medical Attention if any of the following occur: Worsening depression or anxiety Feeling out of control Thoughts of harming yourself or another Being unable to care for yourself You have been given the following additional information: Chest Pain, Uncertain Cause Adjustment Disorder (Electronically signed by Vaughn Clemente Dr. 10/12/2016 8:04)
--- NOTE | 2016-10-12 08:05 | ED MED RECONCILIATION SUMMARY ---
Patient: GEORGIA LACY Medication Reconciliation Report [facility] VisitID: [id number] [address] [place] [address] 46y, M Registration Date/Time: 10/04/2016 Weight: 56.6 kg Height/Length: 65 in. BMI: 20.8 ALLERGIES: NKA The patient's Home Medications are listed below: CONTINUE TAKING THE FOLLOWING MEDICATIONS: Anxiety medication Ibuprofen Oral The source(s) of the original Home Medication information: Not obtained. The following Medications were given to the patient in the Emergency Department: Aspirin [PO] PO 324 mg, administered: 10/04/2016 8:10:00 PM The following Medications were prescribed to the patient: None.
--- NOTE | 2016-10-12 08:05 | ED MED RECONCILIATION SUMMARY ---
Patient: GEORGIA LACY Medication Reconciliation Report [facility] VisitID: [id number] [address] [place] [address] 46y, M Registration Date/Time: 10/04/2016 Weight: 56.6 kg Height/Length: 65 in. BMI: 20.8 ALLERGIES: NKA The patient's Home Medications are listed below: CONTINUE TAKING THE FOLLOWING MEDICATIONS: Anxiety medication Ibuprofen Oral The source(s) of the original Home Medication information: Not obtained. The following Medications were given to the patient in the Emergency Department: Aspirin [PO] PO 324 mg, administered: 10/04/2016 8:10:00 PM The following Medications were prescribed to the patient: None.
== END 2016-10-04 22:05 | disposition home or self-care (01) ==
LOC: ED SRH 19:30
DX: R07.89 Other chest pain (principal); F43.22 Adjustment disorder with anxiety; Z79.899 Other long term (current) drug therapy
CPT/HCPCS: 90004; 90100; 90616; 91556; 92760; 92761; 92762; 92763; 92764; 92765; 92766; 92767; 94060; 95059